=== PATIENT | male | born 2005 | race Two or more races ===

== ENCOUNTER 2025-06-26 19:16 | Emergency (ER) | payer MEDICAID, SELFPAY ==
[2025-06-26 19:18] VITALS: BMI 36.5
[2025-06-26 20:23] VITALS: BP 132/75; PULSE 91; RESP 19; TEMP 37; O2SAT 98
--- NOTE | 2025-06-26 20:28 | XR_ITS ---
Examination: Foot, right, 3 views Technique: AP, oblique, lateral views foot, 3 views Date and time of exam: June 26, 2025, 2031 hours INDICATIONS: Injury to the foot today, foot pain FINDINGS: No acute fracture No dislocation No foreign body IMPRESSION: No acute fracture
--- NOTE | 2025-06-26 21:34 | PD.EDANKLE ---
Lower Extremity Injury RME/HPI General Chief Complaint: Ankle/Foot Injury Stated Complaint: RIGHT FOOT INJURY Time Seen by Provider: 06/26/25 19:20 Arrival date/time: 06/26/25 19:16 This is a case of 19-year-old male with no medical history came in in the emergency room due to foot and toe injury history of present illness started 1 hour prior to arrival in the emergency room patient was working with his friend and accidentally a log dropped on his right foot sustaining pain on the foot and contusion on the third toe of the right foot no other injury noted Limitations: no limitations Related Data Previous Rx's ?Medication ?Instructions ?Recorded ibuprofen 800 mg tablet 800 mg PO Q8H PRN pain #20 tabs 06/26/25 Allergies Allergy/AdvReac Type Severity Reaction Status Date / Time No Known Allergies Allergy Verified 06/26/25 19:17 Review of Systems Review of Systems Systems Reviewed: All systems reviewed, normal except as documented Constitutional Constitutional: Reports system reviewed and no additional complaints, except as documented and Reports as per HPI Cardiovascular Cardiovascular: Reports system reviewed and no additional complaints, except as documented and Reports as per HPI Respiratory Respiratory: Reports system reviewed and no additional complaints, except as documented and Reports as per HPI Gastrointestinal Gastrointestinal: Reports system reviewed and no additional complaints, except as documented and Reports as per HPI Genitourinary Genitourinary: Reports system reviewed and no additional complaints, except as documented and Reports as per HPI Musculoskeletal Musculoskeletal: Reports system reviewed and no additional complaints, except as documented and Reports as per HPI Neurologic Neurologic: Reports system reviewed and no additional complaints, except as documented and Reports as per HPI Past Medical History Social History SMOKING STATUS: Never smoker ED Exam General Limitations: Present no limitations General appearance: Present alert, in no apparent distress and other (Patient is awake alert oriented not in distress nontoxic looking well-hydrated well nourished) Head Head exam: Present atraumatic, normocephalic and normal inspection Eye Eye exam: Present normal appearance, PERRL and EOMI ENT ENT exam: Present normal exam, normal oropharynx and mucous membranes moist Neck Neck exam: Present normal inspection, full ROM and trachea midline; Absent tenderness, meningismus, lymphadenopathy or thyromegaly Chest Chest inspection: Present normal inspection and symmetric chest wall rise; Absent tenderness Respiratory Respiratory exam: Present normal lung sounds bilaterally; Absent respiratory distress, wheezes, stridor, accessory muscle use or prolonged expiratory phase Cardiovascular Cardiovascular exam: Present regular rate, normal rhythm and normal heart sounds; Absent bradycardia, tachycardia, irregular rhythm, systolic murmur or diastolic murmur Abdominal Exam Abdominal exam: Present soft and normal bowel sounds; Absent distention, tenderness, guarding, rebound, rigidity, diminished bowel sounds, hyperactive bowel sounds, hypoactive bowel sounds or organomegaly Extremities Exam Extremities exam: Present normal inspection and full ROM Expanded Lower Extremity Exam Ankle exam: Present normal inspection and full ROM; Absent tenderness, swelling, abrasion, laceration, ecchymosis, deformity, crepitus, dislocation, erythema, tenderness over talofibular lig or anterior draw sign Foot/toe exam: Present tenderness, swelling, ecchymosis and other (Noted ecchymosis on the third toe right foot noted mild tenderness swelling on the dorsal aspect of the right foot ROM is intact nail is intact motor or sensory reflex were normal capillary refill less than 2 send); Absent abrasion, laceration, deformity, crepitus, dislocation, erythema, amputation, puncture wound, foreign body, calcaneal tenderness, tenderness at base of 5th metatarsal, nail avulsion or subungual hematoma Back Exam Back exam: Present normal inspection and full ROM Neurological Exam Neurological exam: Present alert, oriented X3, CN II-XII intact, normal gait and reflexes normal; Absent motor sensory deficit Psychiatric Psychiatric exam: Present normal affect and normal mood Skin Skin exam: Present warm, dry, intact, normal color and other (Contusion toe) Course Quality Measures none Orders Category Date Time Status XR foot comp RT min 3V Stat Exams 06/26/25 20:28 Completed HYDROcodone*/APAP 5/325 [[place] 5/325] Med 06/26/25 22:12 Once 1 tab PO X1 ONE Vital Signs Vital signs: Vital Signs Temperature 98.6 F 06/26/25 20:23 Pulse Rate 91 06/26/25 20:23 Respiratory Rate 19 06/26/25 20:23 Blood Pressure 132/75 H 06/26/25 20:23 Pulse Oximetry (%) 98 06/26/25 20:23 Oxygen Delivery Method Room Air 06/26/25 20:23 Oxygen saturation is 98% in room air Extremity Injury, Lower MDM Narrative MDM Narrative:: This is a case of 19-year-old male with no medical history came in in the emergency room due to foot and toe injury history of present illness started 1 hour prior to arrival in the emergency room patient was working with his friend and accidentally a log dropped on his right foot sustaining pain on the foot and contusion on the third toe of the right foot no other injury noted physical examination patient is awake alert oriented not in distress nontoxic looking well-hydrated well-nourished noted ecchymosis on the third toe right foot nail is intact patient also have mild to moderate tenderness on the dorsal aspect of the right foot with mild swelling no crepitation no deformity ROM intact neurovascular intact x-ray showed no fracture no dislocation Hector bandage was applied patient tolerated well neurovascular intact RICE treatment will continue by the patient at home patient will follow-up with PCP in 2 days for reevaluation and for any worsening symptoms or any emergent concern return precaution in the ER is advsied Patient was discharged with comfortable condition walking with stable gait. Patient verbalized no further complains explained diagnosis and answered patient question. Patient is comfortable with the proposed management plan including the need to follow up with his/her primary care physician and any specialist if applicable Discussed patient for any urgent condition or worsening sx, He/She needed to go to emergency room immediately or call 911. Patient acknowledge the responsibility to follow up as instructed and to monitor her/his symptoms. For any persistence of the symptoms for more than 3-5 days return precaution advised. Discussed the result of the test and was given printed discharge instruction Patient data External records reviewed:: [facility] previous records Clinical information provided by:: patient Social determinants that could affect healthcare access:: none Patient has the following chronic illnesses:: None How is presenting disease/condition affected by chronic disease/condition?: no chronic disease Evaluation data The following diagnostics were reviewed and interpreted by me:: radiology exam(s) Lab and/or radiology exams considered but not ordered:: none Interpretation Summary: none Medications / Prescriptions Medications or Prescriptions considered but not ordered:: given Medication administrations:: Medication Administration History Hydrocodone Bitart/Acetaminophen (Hydrocodone/[place] 5/325 Tablet) 1 tab PO X1 ONE Stop: 06/26/25 22:13 given Consultations Consultation(s) initiated? (list below): No Diagnosis Extremity Injury, Lower Differential Diagnosis: fracture of toe Most likely diagnosis given after review of the tests above:: foot sprain toe contusion Admission Indicated Admission indicated?: not indicated Explain why admission is indicated or not indicated:: not indicated Admission Request Was there a request for admission?: No Admission Attestation Admission request attestation: not indicated Disposition Plan Disposition Plan: Discharge Discharge Attestation Discharge Attestation: The patient and all family members were given an opportunity to ask questions and understood the discharge instructions. Discharge instructions specifically effects, indications for sooner follow up or return to the emergency department, and the expected course of current diagnosis. Patient condition: Stable Discharge Plan Plan Patient Disposition: HOME (Self Care) Patient condition on transfer: Stable Prescriptions/Referrals Prescriptions/Med Rec: New ibuprofen 800 mg tablet 800 mg PO Q8H PRN (Reason: pain) Qty: 20 0RF Referrals: No Primary/Family,Physician [Primary Care Provider] - In 1 week Problem List Clinical Impression: Foot sprain, Contusion of toe Patient/Caregiver Discharge Instructions Education Materials: ED HECTOR Wrap, ED Soft Tissue Contusion, ED Foot Sprain, ED RICE Additional Instructions: Follow-up with your primary care physician in 2 days for reevaluation worsening symptoms or any emergent concerns such as numbness weakness tingling sensation call 911 or go to the nearest emergency room take Tylenol Motrin as needed for pain ice pack every 2 hours for 20 minutes for 24 hours then alternate with warm compress elevate to decrease swelling keep the Hector bandage in place until cleared by your primary care physician Print Language: Norwegian Stand Alone Forms: Yue Award Info., Patient Portal Info Letter PA/AUTOMATIC SPINNING LATHE OPERATOR Supervising Physician PA/AUTOMATIC SPINNING LATHE OPERATOR Supervising Physician: DR Jessica rojas
[2025-06-26] MEDS: HYDROcodone/APAP 5/325 TABLET 1 TAB PO (22:52)
[2025-06-26 23:31] VITALS: RESP 15
== END 2025-06-27 05:31 | disposition home or self-care (01) ==
PROVIDERS: Emergency Provider Emergency Medicine
DX: S93.601A Unspecified sprain of right foot, initial encounter (principal); W20.8XXA Other cause of strike by thrown, projected or falling object, initial encounter
CPT/HCPCS: 73630; 99282; A9270